=== PATIENT | male | born 1965 | race Caucasian/White ===

== ENCOUNTER 2016-10-06 08:34 | Inpatient (IN) | payer BC ==
[~2016-10-06] VITALS: Ht 177.8 cm; Wt 89.7 kg
[~2016-10-06 08:34] MED LIST: AMBIEN5 MG PO; CPAP; PREVACID30 MG PO; SLEEP AID25 M1 PO; TRAZODONE50 MG PO; VYTORIN PO; VYVANSE20 MG PO; ZOLOFT 100MG100 MG PO; [UNRECOGNIZED DRUG - OTHER]; [UNRECOGNIZED DRUG - REMARK]; antidepressant
[2016-10-06 09:27] LABS: BASO # 0.1 (0.0-0.2); BASO % 0.4 % (0.0-2.0); EOS % 0.2 % (0-4.0); GRAN # 9.4 (1.4-6.5); GRAN % 82.7 % (42.2-75.2); HEMATOCRIT 49.9 % (42.0-52.0); LYMPH # 0.9 (1.2-3.4); LYMPH % 7.8 % (20.0-51.0); MEAN CELL VOLUME 96 fl (80.0-100.0); MEAN CORPUSCULAR HEMOGLOBIN 33 pg (27.0-31.0); MEAN CORPUSCULAR HGB CONC 34 g/dl (33.0-37.0); MEAN PLATELET VOLUME 9.7 fl (7.4-10.4); MONO # 0.9 (0.1-0.6); MONO % 7.5 % (1.7-9.3); PLATELET COUNT 304 K/mm3 (130-400); RED BLOOD COUNT 5.21 M/mm3 (4.20-5.60); REDCELL DISTRIBUTION WIDTH-CV 12.1 % (11.5-14.5); WHITE BLOOD COUNT 11.4 K/mm3 (4.8-10.8)
[2016-10-06 09:32] LABS: PROTHROMBIN TIME 10.5 SECONDS (9.7-12.8)
[2016-10-06 09:36] LABS: ADJUSTED CALCIUM 9.3 mg/dL (8.4-10.2); ALANINE AMINOTRANSFERASE 29 U/L (21-72); ALBUMIN 4.4 gm/dL (3.5-5.0); ALKALINE PHOSPHATASE 110 U/L (50-136); ANION GAP 16 mmol/L (7-16); BILIRUBIN,TOTAL 0.9 mg/dL (0.0-1.0); BLOOD UREA NITROGEN 7 mg/dL (9-20); CALCIUM 9.6 mg/dL (8.4-10.2); CARBON DIOXIDE 21 mmol/L (22-30); CHLORIDE 104 mmol/L (98-107); CREATININE, serum 1.05 mg/dL (0.66-1.25); GLUCOSE 106 mg/dL (74-106); POTASSIUM 3.6 mmol/L (3.4-5.0); SODIUM 141 mmol/L (137-145)
[2016-10-06] MEDS ORDERED: ABILIFY5 MG PO (09:36)
[2016-10-06] MEDS ORDERED: CEPHALEXIN500 M1 PO (09:36)
[2016-10-06] MEDS ORDERED: PRISTIQ100 MG PO (09:37)
[2016-10-06] MEDS ORDERED: BRIVIACT25 MG PO (09:37)
[2016-10-06 09:38] LABS: C-REACTIVE PROTEIN < 0.5 mg/dL (0.0-0.9)
[2016-10-06] MEDS ORDERED: PRILOSEC 20MG20 MG PO (09:39)
[2016-10-06] MEDS ORDERED: LAMICTAL XR300 MG PO (09:39)
[2016-10-06] MEDS ORDERED: LAMICTAL XR50 MG PO (09:39)
[2016-10-06] MEDS ORDERED: BANZEL400 MG PO (09:40)
[2016-10-06] MEDS ORDERED: TOPAMAX200 MG PO (09:41)
[2016-10-06] MEDS ORDERED: ATIVAN2 MG PO (09:42)
[2016-10-06 09:53] LABS: TROPONIN-I < 0.012 ng/mL (0.000-0.034)
[2016-10-06 09:54] VITALS: BP 124/85; PULSE 111
[2016-10-06 14:07] VITALS: BP 126/73; PULSE 110; TEMP 98.7
[2016-10-06 16:58] VITALS: BP 140/88; PULSE 115; TEMP 98.5
[2016-10-06] MEDS ORDERED: CRESTOR20 MG PO (17:16)
[2016-10-06] MEDS ORDERED: DESYREL 100MG100 MG PO (17:18)
== END 2016-10-06 19:49 | disposition short-term general hospital (02) | DRG 93 ==
LOC: COL.ER 08:34 → MEDICAL 12:51
PROVIDERS: Emergency Medicine
DX: R27.8 Other lack of coordination (principal); H53.2 Diplopia; G40.409 Other generalized epilepsy and epileptic syndromes, not intractable, without status epilepticus; Z95.828 Presence of other vascular implants and grafts
CPT/HCPCS: J2060; J7030

== ENCOUNTER 2016-10-21 14:24 | Outpatient (RCR) | payer BC ==
[~2016-10-21 14:24] MED LIST changes: +ABILIFY5 MG PO; +ATIVAN2 MG PO; +BANZEL400 MG PO; +BRIVIACT25 MG PO; +CEPHALEXIN500 M1 PO; +CRESTOR20 MG PO; +DESYREL 100MG100 MG PO; +LAMICTAL XR300 MG PO; +LAMICTAL XR50 MG PO; +PRILOSEC 20MG20 MG PO; +PRISTIQ100 MG PO; +TOPAMAX200 MG PO
== END 2016-11-13 12:51 | disposition home or self-care (01) ==
LOC: WSPT 14:24
DX: I63.8 Other cerebral infarction (principal)

== ENCOUNTER → 2017-03-10 | Outpatient (CLI) | payer BC | LOC: BHSO 08:16 | DX: F33.1 Major depressive disorder, recurrent, moderate (principal) ==

== ENCOUNTER → 2017-04-07 | Outpatient (CLI) | payer BC | LOC: BHSO 08:43 | DX: F41.1 Generalized anxiety disorder (principal) ==

== ENCOUNTER → 2017-08-11 | Outpatient (CLI) | payer BC | LOC: BHSO 11:11 | DX: F33.1 Major depressive disorder, recurrent, moderate (principal) | CPT/HCPCS: G0463 ==

== ENCOUNTER → 2017-08-26 | Outpatient (CLI) | payer BC | LOC: BHSO 11:37 | DX: F33.1 Major depressive disorder, recurrent, moderate (principal) | CPT/HCPCS: G0463 ==

== ENCOUNTER → 2017-09-23 | Outpatient (CLI) | payer BC | LOC: BHSO 08:37 | DX: F33.0 Major depressive disorder, recurrent, mild (principal) | CPT/HCPCS: G0463 ==

== ENCOUNTER 2017-10-22 12:16 | Emergency (ER) | payer BC ==
[~2017-10-22] VITALS: Ht 177.8 cm; Wt 118.2 kg
[2017-10-22 12:19] VITALS: TEMP 98.3
[2017-10-22] MEDS ORDERED: VALIUM 2MG T2 MG/TAB PO (12:22)
[2017-10-22] MEDS ORDERED: ZOLOFT 50MG50 MG PO (12:23)
[2017-10-22] MEDS ORDERED: DEPAKOTE ER 50500 MG PO (12:23)
[2017-10-22 12:54] LABS: HEMATOCRIT 47.6 % (42.0-52.0); HEMOGLOBIN 16.6 g/dl (13.5-18.0); MEAN CELL VOLUME 90 fl (80.0-100.0); MEAN CORPUSCULAR HEMOGLOBIN 31 pg (27.0-31.0); MEAN CORPUSCULAR HGB CONC 35 g/dl (33.0-37.0); MEAN PLATELET VOLUME 9.4 fl (7.4-10.4); PLATELET COUNT 241 K/mm3 (130-400); RED BLOOD COUNT 5.28 M/mm3 (4.20-5.60); REDCELL DISTRIBUTION WIDTH-CV 12.2 % (11.5-14.5)
[2017-10-22 13:04] LABS: ALANINE AMINOTRANSFERASE 41 U/L (21-72); ALBUMIN 4.1 gm/dL (3.5-5.0); ALCOHOL(ethanol),MEDICAL < 10 mg/dL; ALKALINE PHOSPHATASE 112 U/L (50-136); ANION GAP 14 mmol/L (7-16); AST,SGOT 40 U/L (15-37); BILIRUBIN,TOTAL 0.4 mg/dL (0.0-1.0); BLOOD UREA NITROGEN 12 mg/dL (9-20); CALCIUM 9.1 mg/dL (8.4-10.2); CARBON DIOXIDE 23 mmol/L (22-30); CHLORIDE 104 mmol/L (98-107); CREATININE, serum 0.88 mg/dL (0.66-1.25); GLUCOSE 107 mg/dL (74-106); POTASSIUM 4.1 mmol/L (3.4-5.0); SODIUM 141 mmol/L (137-145); TOTAL PROTEIN 7.9 gm/dL (6.4-8.2)
[2017-10-22 13:07] LABS: BAND 6 % (0-10); LYMPHOCYTE 10 % (20.0-51.0); NEUTROPHILS 72 % (42.0-75.2); PLATELET ESTIMATE NORMAL (NORMAL)
[2017-10-22] MEDS ORDERED: AMBIEN 10MG10 MG PO (13:53)
[2017-10-22] MEDS ORDERED: PRILOSEC 20MG20 MG PO (13:55)
[2017-10-22] MEDS ORDERED: MELATONIN5 M1 PO (13:55)
[2017-10-22 14:35] LABS: COLLECTION METHOD CLEAN CATCH
[2017-10-22 14:41] LABS: MUCOUS Present /lpf; PH 6 (5-8); SQUAMOUS EPITHELIAL None Seen /hpf; URINE APPEARANCE Clear; URINE BACTERIA None Seen /hpf; URINE BILIRUBIN Negative (NEGATIVE); URINE BLOOD Negative (NEGATIVE); URINE COLOR Yellow; URINE GLUCOSE Negative (NEGATIVE); URINE KETONE Trace (NEGATIVE); URINE LEUKOCYTE ESTERASE Negative (NEGATIVE); URINE NITRATE Negative (NEGATIVE); URINE PROTEIN(semi-quant) Negative (NEGATIVE); URINE RBC 0-2 /hpf
[2017-10-22 15:14] LABS: VALPROIC ACID (DEPAKENE) 64.9 ug/mL (50.0-100.0)
[2017-10-22 15:29] VITALS: BP 163/99; PULSE 93
== END 2017-10-22 15:44 | disposition home or self-care (01) ==
LOC: COL.ER 12:16
PROVIDERS: Emergency Medicine
DX: E86.1 Hypovolemia (principal); F32.9 Major depressive disorder, single episode, unspecified; G40.909 Epilepsy, unspecified, not intractable, without status epilepticus
CPT/HCPCS: J7030

== ENCOUNTER 2017-10-26 11:10 | Inpatient (IN) | payer BC ==
[~2017-10-26] VITALS: Ht 177.8 cm; Wt 121.1 kg
[2017-10-26] VITALS (7 sets, daily range): BP systolic 95–156; BP diastolic 39–97; PULSE 82–105; TEMP 98–99.1
[~2017-10-26 11:10] MED LIST changes: +AMBIEN 10MG10 MG PO; +DEPAKOTE ER 50500 MG PO; +MELATONIN5 M1 PO; +VALIUM 2MG T2 MG/TAB PO; +ZOLOFT 50MG50 MG PO
[2017-10-26] MEDS ORDERED: VALIUM 10MG10 MG/TAB PO (11:27)
[2017-10-26] MEDS ORDERED: LAMICTAL XR50 MG PO (11:28)
[2017-10-26 11:54] LABS: COLLECTION METHOD CLEAN CATCH
[2017-10-26 12:10] LABS: PH 6 (5-8); SQUAMOUS EPITHELIAL 0-2 /hpf; URINE APPEARANCE Clear; URINE BACTERIA None Seen /hpf; URINE BILIRUBIN Negative (NEGATIVE); URINE BLOOD Negative (NEGATIVE); URINE COLOR Yellow; URINE GLUCOSE Negative (NEGATIVE); URINE KETONE Trace (NEGATIVE); URINE LEUKOCYTE ESTERASE Negative (NEGATIVE); URINE NITRATE Negative (NEGATIVE); URINE PROTEIN(semi-quant) Negative (NEGATIVE); URINE RBC None Seen /hpf; URINE UROBILINOGEN Negative (NEGATIVE)
[2017-10-26 12:10] LABS: ALANINE AMINOTRANSFERASE 47 U/L (21-72); ALBUMIN 4.2 gm/dL (3.5-5.0); ALKALINE PHOSPHATASE 110 U/L (50-136); ANION GAP 14 mmol/L (7-16); AST,SGOT 56 U/L (15-37); BILIRUBIN,TOTAL 0.5 mg/dL (0.0-1.0); BLOOD UREA NITROGEN 12 mg/dL (9-20); CALCIUM 9.2 mg/dL (8.4-10.2); CARBON DIOXIDE 24 mmol/L (22-30); CHLORIDE 104 mmol/L (98-107); CREATININE, serum 0.92 mg/dL (0.66-1.25); GLUCOSE 109 mg/dL (74-106); MAGNESIUM 2.2 mg/dL (1.6-2.3); PHOSPHOROUS 3.8 mg/dL (2.5-4.5); POTASSIUM 4.7 mmol/L (3.4-5.0); SODIUM 142 mmol/L (137-145); TOTAL PROTEIN 8.2 gm/dL (6.4-8.2)
[2017-10-26 12:11] LABS: ALCOHOL(ethanol),MEDICAL < 10 mg/dL
[2017-10-26 12:18] LABS: HEMATOCRIT 48.2 % (42.0-52.0); HEMOGLOBIN 16.7 g/dl (13.5-18.0); MEAN CELL VOLUME 90 fl (80.0-100.0); MEAN CORPUSCULAR HEMOGLOBIN 31 pg (27.0-31.0); MEAN CORPUSCULAR HGB CONC 35 g/dl (33.0-37.0); MEAN PLATELET VOLUME 9.8 fl (7.4-10.4); PLATELET COUNT 277 K/mm3 (130-400); RED BLOOD COUNT 5.33 M/mm3 (4.20-5.60); REDCELL DISTRIBUTION WIDTH-CV 12.3 % (11.5-14.5)
[2017-10-26 12:26] LABS: TRICYCLIC ANTIDEPRESS URINE NEGATIVE
[2017-10-26 12:48] LABS: BAND 5 % (0-10); LYMPHOCYTE 17 % (20.0-51.0); NEUTROPHILS 66 % (42.0-75.2); PLATELET ESTIMATE NORMAL (NORMAL)
[2017-10-27] VITALS (13 sets, daily range): BP systolic 117–158; BP diastolic 76–97; PULSE 71–131; TEMP 97.6–99.4
[2017-10-27 06:58] LABS: BASO # 0.1 (0.0-0.2); BASO % 0.8 % (0.0-2.0); EOS # 0.1 (0.0-0.7); EOS % 0.8 % (0-4.0); GRAN # 4.9 (1.4-6.5); GRAN % 64.3 % (42.2-75.2); HEMATOCRIT 44.8 % (42.0-52.0); HEMOGLOBIN 14.8 g/dl (13.5-18.0); LYMPH # 1.3 (1.2-3.4); LYMPH % 17.2 % (20.0-51.0); MEAN CORPUSCULAR HEMOGLOBIN 31 pg (27.0-31.0); MEAN CORPUSCULAR HGB CONC 33 g/dl (33.0-37.0); MEAN PLATELET VOLUME 9.5 fl (7.4-10.4); MONO % 12.5 % (1.7-9.3); PLATELET COUNT 224 K/mm3 (130-400); RED BLOOD COUNT 4.72 M/mm3 (4.20-5.60); REDCELL DISTRIBUTION WIDTH-CV 12.4 % (11.5-14.5)
[2017-10-27 07:11] LABS: ALBUMIN 3.6 gm/dL (3.5-5.0); BILIRUBIN,TOTAL 0.4 mg/dL (0.0-1.0); CALCIUM 8.9 mg/dL (8.4-10.2); CREATININE, serum 1.02 mg/dL (0.66-1.25); MAGNESIUM 2.2 mg/dL (1.6-2.3); POTASSIUM 4.3 mmol/L (3.4-5.0); TOTAL PROTEIN 6.9 gm/dL (6.4-8.2)
[2017-10-27 07:15] LABS: MEAN CELL VOLUME 95 fl (80.0-100.0)
[2017-10-28] VITALS (10 sets, daily range): BP systolic 105–135; BP diastolic 68–94; PULSE 82–132; TEMP 97.7–99.2
[2017-10-29] VITALS (11 sets, daily range): BP systolic 97–156; BP diastolic 61–101; PULSE 80–101; TEMP 97.7–98.6
[2017-10-29 07:01] LABS: HEMATOCRIT 45.5 % (42.0-52.0); HEMOGLOBIN 15.4 g/dl (13.5-18.0); MEAN CELL VOLUME 92 fl (80.0-100.0); MEAN CORPUSCULAR HEMOGLOBIN 31 pg (27.0-31.0); MEAN CORPUSCULAR HGB CONC 34 g/dl (33.0-37.0); MEAN PLATELET VOLUME 9.8 fl (7.4-10.4); PLATELET COUNT 214 K/mm3 (130-400); RED BLOOD COUNT 4.96 M/mm3 (4.20-5.60); REDCELL DISTRIBUTION WIDTH-CV 12.3 % (11.5-14.5)
[2017-10-29 07:14] LABS: CALCIUM 9.1 mg/dL (8.4-10.2); CREATININE, serum 0.91 mg/dL (0.66-1.25); POTASSIUM 3.9 mmol/L (3.4-5.0)
[2017-10-29 09:16] LABS: BAND 6 % (0-10); LYMPHOCYTE 16 % (20.0-51.0); NEUTROPHILS 73 % (42.0-75.2); PLATELET ESTIMATE NORMAL (NORMAL)
[2017-10-29 10:07] LABS: LIPASE 61 U/L (23-300)
[2017-10-29 10:23] LABS: TROPONIN-I < 0.012 ng/mL (0.000-0.034)
[2017-10-30 00:09] VITALS: BP 115/74; PULSE 79; TEMP 98
[2017-10-30 02:56] VITALS: BP 117/66; PULSE 81; TEMP 97.8
[2017-10-30 07:42] VITALS: BP 132/85; PULSE 83; TEMP 97.1
[2017-10-30 10:16] VITALS: BP 127/80; PULSE 87; TEMP 97.8
[2017-10-30] MEDS ORDERED: FOLIC ACID 11 MG/TA1 PO (10:51)
[2017-10-30] MEDS ORDERED: THIAMINE 1100 MG/TAB PO (10:51)
[2017-10-30] MEDS ORDERED: DUO-KAPS1 CAP PO (10:51)
[2017-10-30] MEDS ORDERED: ANTI-DIARRHEAL2 MG PO (10:51)
[2017-10-30 11:04] VITALS: BP 133/72; PULSE 101; TEMP 98
[2017-10-30] MEDS ORDERED: VALIUM 10MG10 MG/TAB PO (12:17)
[2017-10-30] MEDS ORDERED: AMBIEN 10MG10 MG PO (12:17)
== END 2017-10-30 13:00 | disposition other institution (70) | DRG 897 ==
LOC: COL.ER 11:10 → MEDICAL 13:25
PROVIDERS: Emergency Medicine; Nurse Practitioner Family; Physician Assistant
DX: F10.20 Alcohol dependence, uncomplicated (principal); G40.209 Localization-related (focal) (partial) symptomatic epilepsy and epileptic syndromes with complex partial seizures, not intractable, without status epilepticus; Y90.0 Blood alcohol level of less than 20 mg/100 ml; R10.13 Epigastric pain; K21.9 Gastro-esophageal reflux disease without esophagitis; G47.00 Insomnia, unspecified; G47.30 Sleep apnea, unspecified; E78.00 Pure hypercholesterolemia, unspecified
CPT/HCPCS: 99223-AI; 99232-AI; 99233-AI; 99239; C9113; J1650; J2060; J2405; J7030

== ENCOUNTER → 2017-11-19 | Outpatient (CLI) | payer BC ==
[~2017-11-19] MED LIST changes: +ANTI-DIARRHEAL2 MG PO; +DUO-KAPS1 CAP PO; +FOLIC ACID 11 MG/TA1 PO; +THIAMINE 1100 MG/TAB PO; +VALIUM 10MG10 MG/TAB PO
== END ==
LOC: BHSO 14:19
DX: F10.20 Alcohol dependence, uncomplicated (principal)
CPT/HCPCS: G0463

== ENCOUNTER → 2017-12-17 | Outpatient (CLI) | payer BC ==
[~2017-12-17] VITALS: Ht 176.5 cm; Wt 113.9 kg
[~2017-12-17] MED LIST changes: +ATARAX 25MG25 MG/TAB PO; +CAMPRAL333 M1 PO; +DEPAKOTE500 MG PO; +LAMICTAL 100MG100 MG PO; +MELATONIN5 M1 SL; +SEROQUEL 1100 MG/TAB PO; -ZOLOFT 50MG50 MG PO
[2017-12-17 14:31] VITALS: BP 140/90; PULSE 104
== END ==
LOC: LIGHT 14:08
DX: E78.5 Hyperlipidemia, unspecified (principal); E66.9 Obesity, unspecified; Z68.36 Body mass index [BMI] 36.0-36.9, adult; Z71.3 Dietary counseling and surveillance; E88.81 Metabolic syndrome and other insulin resistance
CPT/HCPCS: G0463

== ENCOUNTER → 2017-12-17 | Outpatient (CLI) | payer BC | LOC: BHSO 13:43 | DX: F10.20 Alcohol dependence, uncomplicated (principal) | CPT/HCPCS: G0463 ==

== ENCOUNTER → 2018-01-21 | Outpatient (CLI) | payer BC ==
[~2018-01-21] VITALS: Ht 176.5 cm; Wt 115.9 kg
[2018-01-21 11:35] VITALS: BP 126/80; PULSE 132
== END ==
LOC: LIGHT 01-11 15:21
DX: E78.5 Hyperlipidemia, unspecified (principal); E66.9 Obesity, unspecified; Z68.37 Body mass index [BMI] 37.0-37.9, adult; Z71.3 Dietary counseling and surveillance; E88.81 Metabolic syndrome and other insulin resistance
CPT/HCPCS: G0463

== ENCOUNTER → 2018-02-04 | Outpatient (CLI) | payer BC | LOC: LIGHT 09:01 | DX: E78.5 Hyperlipidemia, unspecified (principal); E66.9 Obesity, unspecified; Z68.36 Body mass index [BMI] 36.0-36.9, adult; Z71.3 Dietary counseling and surveillance; E88.81 Metabolic syndrome and other insulin resistance ==

== ENCOUNTER → 2018-03-12 | Outpatient (CLI) | payer BC | LOC: BHSO 10:44 | DX: F10.20 Alcohol dependence, uncomplicated (principal) | CPT/HCPCS: G0463 ==

== ENCOUNTER → 2018-03-30 | Outpatient (CLI) | payer BC | LOC: BHSO 11:13 | DX: F33.2 Major depressive disorder, recurrent severe without psychotic features (principal) ==

== ENCOUNTER → 2018-04-06 | Outpatient (CLI) | payer BC | LOC: BHSO 11:04 | DX: F33.2 Major depressive disorder, recurrent severe without psychotic features (principal) ==

== ENCOUNTER → 2018-04-13 | Outpatient (CLI) | payer BC | LOC: BHSO 11:07 | DX: F33.1 Major depressive disorder, recurrent, moderate (principal) ==

== ENCOUNTER → 2018-05-18 | Outpatient (CLI) | payer BC | LOC: BHSO 12:59 | DX: F33.1 Major depressive disorder, recurrent, moderate (principal) ==

== ENCOUNTER → 2018-06-08 | Outpatient (CLI) | payer BC | LOC: BHSO 13:01 | DX: F33.1 Major depressive disorder, recurrent, moderate (principal) ==

== ENCOUNTER → 2018-06-22 | Outpatient (CLI) | payer BC | LOC: BHSO 13:58 | DX: F33.1 Major depressive disorder, recurrent, moderate (principal) ==

== ENCOUNTER 2018-08-27 16:27 | Emergency (ER) | payer BC ==
[~2018-08-27] VITALS: Ht 177.8 cm; Wt 115.9 kg
[~2018-08-27 16:27] MED LIST changes: -BRINTELLIX20 PO; -MASON NATURAL2000 IU PO
[2018-08-27 16:49] VITALS: TEMP 98.9
[2018-08-27] MEDS ORDERED: BRINTELLIX20 PO (17:28)
[2018-08-27 17:30] LABS: BASO % 0.3 % (0.0-2.0); EOS % 0.3 % (0-4.0); GRAN # 5.7 (1.4-6.5); HEMATOCRIT 45.2 % (42.0-52.0); HEMOGLOBIN 15.6 g/dl (13.5-18.0); LYMPH # 1.6 (1.2-3.4); LYMPH % 17.9 % (20.0-51.0); MEAN CELL VOLUME 92 fl (80.0-100.0); MEAN CORPUSCULAR HEMOGLOBIN 32 pg (27.0-31.0); MEAN CORPUSCULAR HGB CONC 35 g/dl (33.0-37.0); MEAN PLATELET VOLUME 9.4 fl (7.4-10.4); MONO # 1.2 (0.1-0.6); MONO % 13.4 % (1.7-9.3); PLATELET COUNT 233 K/mm3 (130-400); RED BLOOD COUNT 4.91 M/mm3 (4.20-5.60); REDCELL DISTRIBUTION WIDTH-CV 11.9 % (11.5-14.5)
[2018-08-27] MEDS ORDERED: MASON NATURAL2000 IU PO (17:31)
[2018-08-27 17:49] LABS: ALANINE AMINOTRANSFERASE 35 U/L (21-72); ALBUMIN 4.1 gm/dL (3.5-5.0); ALKALINE PHOSPHATASE 106 U/L (50-136); ANION GAP 10 mmol/L (7-16); AST,SGOT 36 U/L (15-37); BILIRUBIN,TOTAL 0.4 mg/dL (0.0-1.0); BLOOD UREA NITROGEN 14 mg/dL (9-20); CALCIUM 9.5 mg/dL (8.4-10.2); CARBON DIOXIDE 27 mmol/L (22-30); CHLORIDE 103 mmol/L (98-107); CREATININE, serum 0.98 mg/dL (0.66-1.25); GLUCOSE 102 mg/dL (74-106); POTASSIUM 4.1 mmol/L (3.4-5.0); SODIUM 140 mmol/L (137-145); TOTAL PROTEIN 7.6 gm/dL (6.4-8.2)
[2018-08-27 17:54] LABS: VALPROIC ACID (DEPAKENE) 59.3 ug/mL (50.0-100.0)
[2018-08-27 18:01] LABS: COLLECTION METHOD CLEAN CATCH
[2018-08-27 18:08] LABS: MUCOUS Present /lpf; PH 5 (5-8); SQUAMOUS EPITHELIAL None Seen /hpf; URINE APPEARANCE Clear; URINE BACTERIA None Seen /hpf; URINE BILIRUBIN Negative (NEGATIVE); URINE BLOOD Negative (NEGATIVE); URINE COLOR Yellow; URINE GLUCOSE Negative (NEGATIVE); URINE KETONE Negative (NEGATIVE); URINE LEUKOCYTE ESTERASE Negative (NEGATIVE); URINE NITRATE Negative (NEGATIVE); URINE PROTEIN(semi-quant) Negative (NEGATIVE); URINE RBC 0-2 /hpf
[2018-08-27 18:15] LABS: TRICYCLIC ANTIDEPRESS URINE POSITIVE
[2018-08-27 18:58] LABS: ACETAMINOPHEN < 10 ug/mL (10-30); ALCOHOL(ethanol),MEDICAL < 10 mg/dL; SALICYLATE < 1.0 mg/dL
[2018-08-27 20:30] LABS: TROPONIN-I < 0.012 ng/mL (0.000-0.035)
[2018-08-28 09:59] VITALS: BP 145/87; PULSE 82
== END 2018-08-28 10:03 ==
LOC: COL.ER 16:27
PROVIDERS: Emergency Medicine
DX: F32.9 Major depressive disorder, single episode, unspecified (principal); R45.851 Suicidal ideations; F41.9 Anxiety disorder, unspecified; R00.0 Tachycardia, unspecified; I10 Essential (primary) hypertension; G40.909 Epilepsy, unspecified, not intractable, without status epilepticus; E78.00 Pure hypercholesterolemia, unspecified
CPT/HCPCS: J7030; Q9967

== ENCOUNTER → 2018-08-27 | Outpatient (CLI) | payer BC ==
[~2018-08-27] MED LIST changes: +BRINTELLIX20 PO; +MASON NATURAL2000 IU PO
== END ==
LOC: BHSO 15:30
DX: F33.2 Major depressive disorder, recurrent severe without psychotic features (principal)
CPT/HCPCS: G0463

== ENCOUNTER → 2018-09-08 | Outpatient (CLI) | payer BC ==
[~2018-09-08] MED LIST changes: +BRINTELLIX20 PO; +MASON NATURAL2000 IU PO
== END ==
LOC: BHSO 14:03
DX: F33.41 Major depressive disorder, recurrent, in partial remission (principal)
CPT/HCPCS: G0463

== ENCOUNTER → 2018-10-06 | Outpatient (CLI) | payer BC | LOC: BHSO 13:19 | DX: F10.20 Alcohol dependence, uncomplicated (principal) | CPT/HCPCS: G0463 ==

== ENCOUNTER 2018-10-10 16:26 | Emergency (ER) | payer BC ==
[~2018-10-10] VITALS: Ht 177.8 cm; Wt 118.2 kg
[2018-10-10 16:30] VITALS: TEMP 98.4
[2018-10-10 16:56] LABS: BASO # 0.1 (0.0-0.2); BASO % 0.5 % (0.0-2.0); EOS # 0.1 (0.0-0.7); EOS % 0.5 % (0-4.0); GRAN % 61.2 % (42.2-75.2); HEMATOCRIT 48.3 % (42.0-52.0); HEMOGLOBIN 16.7 g/dl (13.5-18.0); LYMPH # 2.8 (1.2-3.4); LYMPH % 24.6 % (20.0-51.0); MEAN CELL VOLUME 92 fl (80.0-100.0); MEAN CORPUSCULAR HEMOGLOBIN 32 pg (27.0-31.0); MEAN CORPUSCULAR HGB CONC 35 g/dl (33.0-37.0); MEAN PLATELET VOLUME 9.5 fl (7.4-10.4); MONO # 1.3 (0.1-0.6); MONO % 11.3 % (1.7-9.3); PLATELET COUNT 319 K/mm3 (130-400); RED BLOOD COUNT 5.24 M/mm3 (4.20-5.60); REDCELL DISTRIBUTION WIDTH-CV 11.5 % (11.5-14.5)
[2018-10-10 17:03] LABS: ALBUMIN 4.3 gm/dL (3.5-5.0); BILIRUBIN,TOTAL 0.5 mg/dL (0.0-1.0); C-REACTIVE PROTEIN 2.4 mg/dL (0.0-0.9); CALCIUM 9.4 mg/dL (8.4-10.2); CREATININE, serum 1.09 (0.66-1.25); POTASSIUM 4.3 mmol/L (3.4-5.0)
[2018-10-10] MEDS ORDERED: NORCO 325 MG-51 TAB PO (18:36)
[2018-10-10] MEDS ORDERED: ZOFRAN ODT4 MG PO (18:36)
[2018-10-10 19:11] VITALS: BP 127/99; PULSE 121
== END 2018-10-10 19:15 | disposition home or self-care (01) ==
LOC: COL.ER 16:26
PROVIDERS: Emergency Medicine
DX: K63.89 Other specified diseases of intestine (principal); E78.5 Hyperlipidemia, unspecified; F32.9 Major depressive disorder, single episode, unspecified; F41.9 Anxiety disorder, unspecified; K21.9 Gastro-esophageal reflux disease without esophagitis; G40.909 Epilepsy, unspecified, not intractable, without status epilepticus; Z88.0 Allergy status to penicillin
CPT/HCPCS: J1170; J1885; J2060; J2405; J7030; Q9967